=== PATIENT | female | born 1990 | race Caucasian/White ===

== ENCOUNTER → 2023-06-08 | Outpatient (CLI) | payer BC, SELFPAY ==
--- NOTE | 2023-06-08 14:40 | VDLE_ITS ---
Reason For Study: Left leg pain RIGHT LEFT CFV is compressible, spontaneous, phasic, CFV is compressible, spontaneous, phasic, competent and demonstrates normal competent, and demonstrates normal augmentation. augmentation. Procedure FV is compressible, spontaneous, phasic, This is a venous duplex using B-mode, color competent and demonstrates normal flow and spectral Doppler. augmentation. Exam performed in department. POP V is compressible, spontaneous, phasic, A preliminary report was called and/or faxed competent and demonstrates normal to Dr. Pierre. augmentation. T/P Trunk is compressible. PTV is compressible. LT PerV is compressible. GSV and SSV are occluded s/p EVLA. VL/Venous Duplex US, Unilateral Interpretation Summary Deep veins of the left lower extremity are patent and compressible segmentally. There is no evidence of left lower extremity deep vein thrombosis. Valvular competence appears intac t within the proximal deep venous system on the left . The left great saphenous vein and small saphen ous vein are occluded, consistent with a recent endothermal ablation procedure. Ordering Physician: Angel Pierre Referring Physician: Veronica Campuzano Performed By: Darline Young RVT
== END | disposition home or self-care (01) ==
PROVIDERS: PCP Internal Medicine; Referring Provider Surgery; Visit Provider Surgery
DX: I83.12 Varicose veins of left lower extremity with inflammation (principal); M79.605 Pain in left leg
CPT/HCPCS: 93971

== ENCOUNTER 2025-06-14 14:38 | Emergency (ER) | payer BC, SELFPAY ==
[2025-06-14 14:38] VITALS: BP 125/81; PULSE 75; RESP 16; TEMP 36.2; O2SAT 100; BMI 21.9
--- NOTE | 2025-06-14 15:08 | EDS_ITS ---
HPI HPI - GI History of Present Illness Chief Complaint: Abd Pain Informant: patient Abdominal Pain/Flank Pain Onset: Month(s) Context: Gradual Onset Timing: Intermittent Quality: Aching and Burning Location: Epigastric Current Severity: Mild Maximum Severity: Mild Worsened by: Nothing Relieved by: Nothing Nausea/Vomiting/Emesis GI Symptom: Positive for Nausea; Negative for Vomiting Diarrhea/Melena/Hematochezia GI Symptom: Negative for Diarrhea, Melena or Hematochezia Associated Symptoms Associated Symptoms: Positive for -; Negative for Dysuria, Frequency, Hematuria or Urgency LMP: Currently on her last menstrual period Narrative Narrative: 35-year-old female no past medical history no prior abdominal surgeries. No prior endoscopy. States she has had epigastric abdominal pain that comes and goes for the last 4 months seems to be getting more frequent and at times more severe. Associated nausea. No vomiting or diarrhea. No melena or fever. No dysuria. Says nothing particular makes it better or worse. Prior similar symptoms: Yes Recent Illness/Hospitalization: No PFSH PFSH Medical History no medical history no medical history Home Medications ?Medication ?Instructions ?Recorded ?Last Taken ?Type acetaminophen 500 mg capsule 1,000 mg PO Q6H PRN pain 06/14/25 06/14/25 History pantoprazole 40 mg tablet,delayed 40 mg PO DAILY #20 t abs 06/14/25 Unknown Rx release (Protonix) Allergy/AdvReac Type Severity Reaction Status Date / Time No Known Allergies Allergy Verified 06/14/25 14:39 Surgical History tubal ligation bone spur removal no surgical history Social History (Updated 06/14/25 @ 14:51 by Suad Barry) current occupational status: employed Smoking Status: Never smoker alcohol intake: current details: social substance use type: does not use caffeine: Yes what type of physical activity do you participate in: none seatbelt use: always do you feel safe at home: Yes additional social history: [employer] Patient works at [employer] ED ROS Narrative Epigastric abdominal pain. Nausea. Constitutional Constitutional ED: Denies chills or fever(s) ENT ENT ED: Denies ear pain Cardiovascular Cardiovascular: Denies chest pain Respiratory/Chest Respiratory/Chest: Denies cough Gastrointestinal Gastrointestinal: Reports abdominal pain and nausea; Denies constipation, diarrhea, melena or vomiting Genitourinary Genitourinary ED: Denies dysuria or hematuria Musculoskeletal Musculoskeletal: Denies arthralgias Integumentary Denies abscess Neurologic Neurologic: Denies headache(s) Psychiatric Psychiatric: Denies anxiety Endocrine Endocrinology: Denies polydipsia Hematologic/Lymphatic Hematologic/Lymphatic: Denies easy bleeding Allergic/Immunologic Allergic/Immunologic ED: Denies mouth swelling EXAM Physical Exam Narrative Exam Narrative: Well-appearing 35-year-old female. Vital signs stable afebrile. No acute distress. H EENT exam pupils round react light. Moist mucous membranes. Lungs clear to auscultation. Heart regular rhythm rate about 75 no murmur. Chest wall ribs nontender. Abdomen soft nondistended normal bowel sounds without peritoneal signs. No reproducible pain she points to epigastric area that she has pain but it is does not make it any worse with palpation. Right upper right lower quadrant is unremarkable. No distention. No mass. Positive bowel sounds. Moving all 4 extremities. Nontender no edema. Neurologically she is awake alert. Answering questions and following commands. Very benign exam. Back nontender. Const Vital Signs: 06/14/25 14:38 Temperature 97.2 F L Temperature Source Temporal Pulse Rate 75 Respiratory Rate 16 Blood Pressure 125/81 H Blood Pressure Mean 95 Pulse Ox 100 Oxygen Delivery Method Room Air MDM MDM MDM Narrative Medical decision making narrative: 35-year-old female epigastric abdominal pain intermittently for 4 months exam benign suspect gastritis. Screening labs to be obtained. She will be given Protonix and a GI cocktail to see if it helps her symptoms. I do not think she needs any imaging. Repeat exam patient doing well 4:15 PM. Still has some mild epigastric abdominal pain. No really reproducible pain. No right upper quadrant pain. Labs are unremarkable. Should be treated as gastritis. She discussed that versus an ulcer versus other etiologies. She has no primary care physician and she will follow-up with her [facility]. And she be placed on Protonix for 2 weeks. She knows to return if worse. History & Record Review Discussion w/independent historian: Patient Additional record(s) reviewed:: Prior outpatient record Lab Data Attestation: I reviewed the patient's lab results. Lab results narrative: CBC normal. White count of 6. H&H 14 and 41. Platelets 188. Chemistries show a gap of 18. BUN and creatinine of 7 and 0.6. Glucose 80. Liver enzymes show an AST of 33. Lipase of 46 and normal. Serum test negative. Labs: Laboratory Results - last 24 hr 06/14/25 15:25 WBC 6.4 RBC 4.71 Hgb 14.4 Hct 41.9 MCV 89.0 MCH 30.6 MCHC 34.4 RDW Std Deviation 38.9 RDW Coeff of Analia 11.9 Plt Count 188 MPV 11.5 Immature Gran % (Auto) 0.300 Neut % (Auto) 58.2 Lymph % (Auto) 31.7 [place] % (Auto) 8.1 Eos % (Auto) 1.1 Baso % (Auto) 0.6 Absolute Neuts (auto) 3.7 Absolute Lymphs (auto) 2.04 Nucleated RBC % 0 Sodium 137 Potassium 3.4 Chloride 98 Carbon Dioxide 21.4 Anion Gap 18 H BUN 7 Creatinine 0.66 L Estim Creat Clear Calc 116.80 Est GFR (MDRD) Non-Af 118 BUN/Creatinine Ratio 11.2 Glucose 80 Calcium 9.5 Total Bilirubin 0.69 AST 33 H ALT 34 Alkaline Phosphatase 48 Total Protein 8.0 Albumin 5.1 H Globulin 2.9 Albumin/Globulin Ratio 1.8 Lipase 46 Serum , Qual NEGATIVE Discharge Plan Triage Chief Complaint: Abd Pain ED Provider: Denny Riley Dx/Rx/DC Orders Clinical Impression: Abdominal pain, Gastritis Instructions: Abdominal Pain, ED Gastritis (Adult) Prescriptions: New pantoprazole [Protonix] 40 mg tablet,delayed release (DR/EC) 40 mg PO DAILY Qty: 20 0RF No Action acetaminophen 500 mg capsule 1,000 mg PO Q6H PRN (Reason: pain) Primary Care Provider: Care Physician,No Primary Referrals: Rodney Cintron DO [Med Staff - Active Staff, Gastroenterology] - 10-14 Days if not better Care Physician,No Primary [Primary Care Provider, Medical] Brittni Cui, BRIM POUNCER MACHINE OPERATOR-C [facility] - 1 Week if not improving Activity Restrictions/Additional Instructions: Medication Protonix once daily for the next 2 weeks see if improves her symptoms. Follow-up with the [facility] clinic if not improving. Return to emergency department if worse. Or if you would throw up blood or see black or bloody stools. Most likely this is inflammation in your stomach that should get better with the medication. Print Language: British Disposition Disposition: Home, Self Care
[2025-06-14] MEDS: Lidocaine 2% Viscous15 ML UDC 15 ML PO (15:21)
[2025-06-14 15:32] LABS: Hematocrit 41.9 % (37-47); Hemoglobin 14.4 g/dL (12.0-15.0); Immature Granulocytes Count 0.020 X10^3/uL (0.0-0.0); Mean Corp Hgb Conc 34.4 g/dL (32-36); Mean Corpuscular Volume 89.0 fL (81-99); Mean Platelet Vol. 11.5 fl (6.2-12.0); NRBC Flagged by Analyzer 0 % (0-5); Platelet Count 188 K/mm3 (150-450); RBC Distribution Width CV 11.9 % (11.6-14.6); RBC Distribution Width SD 38.9 fl (35.1-43.9); Red Blood Count 4.71 M/mm3 (4.2-5.4); White Blood Count 6.4 K/mm3 (4.4-11.0)
[2025-06-14 15:46] LABS: Internal QC Validated? YES +Cl - CLEAR BKGD; Pregnancy, Serum, hCG Quali. NEGATIVE Negative; Record Kit Lot#, Serum Preg. 0000980607
[2025-06-14 15:58] LABS: AST(SGOT) 33 U/L (<=31); Alanine Aminotransfer ALT/SGPT 34 U/L (<=34); Albumin, Serum 5.1 g/dL (3.5-5.0); Alkaline Phosphatase 48 U/L (35-104); Anion Gap 18 (5-15); BUN 7 mg/dL (4-19); BUN/Creat Ratio 11.2 RATIO (10-20); Calcium,Total 9.5 mg/dL (7.6-11.0); Carbon Dioxide 21.4 mmol/L (21.0-32.0); Chloride 98 mmol/L (98-108); Estimated Creatinine Clearance 116.80 ml/min (50-250); Globulin 2.9 g/dL (2.2-4.2); Glucose 80 mg/dL (70-99); Lipase 46 U/L (13-75); Potassium 3.4 mmol/L (3.3-5.1)
--- NOTE | 2025-06-14 16:04 | CM.ED ---
Social work Reason for referral: no PCP Referral source: case find SW entered patient's room, introducing self and role at [facility]. Patient hesitantly welcomed SW visit and appeared more at ease when SW explained reason for SW visit. Patient confirmed not having a PCP and probably needing resources. Patient accepted resources of [facility] doctors accepting new patients as well as Marce Mendiola information. Patient denied further needs at this time. Neema Mckeon, CONSUMER LOAN UNDERWRITER, 8[employer] GRADE MATHEMATICS TEACHER
[2025-06-14 16:25] VITALS: BP 119/70; PULSE 70; RESP 16; TEMP 36.2; O2SAT 100
== END 2025-06-14 16:28 | disposition home or self-care (01) ==
PROVIDERS: Emergency Provider Emergency Medicine; Visit Provider Emergency Medicine
DX: R10.13 Epigastric pain (principal); K29.70 Gastritis, unspecified, without bleeding; Z79.899 Other long term (current) drug therapy
CPT/HCPCS: 80053; 83690; 84703; 85025; 99284; A4216